=== PATIENT | male | born 1955 | race Caucasian/White ===

== ENCOUNTER 2021-01-17 14:51 | Outpatient (REF) | payer BC, SELFPAY ==
--- NOTE | ~2021-01-17 | XR_ITS ---
EXAMINATION: XR CHEST CLINICAL INFORMATION: Cough COMPARISON: None TECHNIQUE: 2 views of the chest were obtained. FINDINGS: The lungs are well expanded. There is no focal consolidation, edema, or effusion. No pneumothorax. The cardiomediastinal silhouette is within normal limits. No acute osseous abnormality. XR/XR chest 2V IMPRESSION: Clear lungs.
[2021-01-17 15:44] LABS: MANUAL DIFF FLAG NO
[2021-01-17 15:53] LABS: Basophils Absolute Auto 0.1 X10*3/uL (0.0-0.2); Basophils Percent Auto 0.7 % (0-2); Eosinophils Absolute Auto 0.2 X10*3/uL (0.0-0.4); Eosinophils Percent Auto 1.5 % (0-4); Hematocrit 45.5 % (42-52); Hemoglobin 15.6 g/dl (14.0-18.0); Imm Gran Abs Auto 0.05 X10*3/uL (0.00-0.03); Imm Gran Pct Auto 0.5 % (0.0-0.4); Lymphocytes Absolute Auto 2.5 X10*3/uL (1.2-4.9); Lymphocytes Percent Auto 24.2 % (20-40); Mean Corpuscular HGB Conc 34.3 g/dl (31.0-36.0); Mean Corpuscular Hemoglobin 28.6 pg (27.0-33.0); Mean Corpuscular Volume 83.3 fL (80-98); Mean Platelet Volume 11.8 fL (9.4-12.4); Monocytes Percent Auto 9.6 % (2-11); Neutrophils Absolute Auto 6.6 X10*3/uL (2.0-8.3); Neutrophils Percent Auto 63.5 % (45-73); Platelet Count 230 X10*3/uL (160-400); Red Blood Count 5.46 X10*6/uL (4.60-5.80); Red Cell Distribution Width 12.2 % (11.0-16.0); White Blood Count 10.4 X10*3/uL (4.8-10.8)
[2021-01-17 16:00] LABS: Estimated Average Glucose 171 mg/dL; Hemoglobin A1c % 7.6 %
[2021-01-17 16:22] LABS: Alanine Aminotransferase 25 U/L (0-40); Albumin Level 4.5 g/dL (3.5-5.0); Alkaline Phosphatase 55 U/L (39-117); Anion Gap 14 (12-20); Aspartate Amino Transferase 16 U/L (5-37); Bilirubin Total 1.5 mg/dL (0.0-1.0); Blood Urea Nitrogen 15 mg/dL (9-16); C Reactive Protein 1.12 mg/dL (< or = 0.50); Calcium 9.6 mg/dL (8.4-10.2); Carbon Dioxide 26 mmol/L (22-29); Chloride 101 mmol/L (96-108); Estimated Glomerular Filt Rate > 60; Glucose Random 161 mg/dL (60-115); Potassium 4.4 mmol/L (3.3-5.1); Sodium 137 mmol/L (135-145); Total Protein 8.1 g/dL (6.5-8.0)
[2021-01-17 16:24] LABS: Microalbum/Creatinine Ratio Ur 95.9 ug/mg cr
[2021-01-17 16:44] LABS: Free T4 (Free Thyroxine) 0.97 ng/dL (0.71-1.85)
== END 2021-01-17 14:52 | disposition home or self-care (01) ==
LOC: HO.LAB 14:51
PROVIDERS: PCP Internal Medicine; Visit Provider Internal Medicine
DX: R05 Cough (principal); E11.9 Type 2 diabetes mellitus without complications; E78.00 Pure hypercholesterolemia, unspecified; R63.5 Abnormal weight gain
CPT/HCPCS: 36415; 71046; 80053; 82043; 83036; 84439; 84443; 85025; 86140

== ENCOUNTER 2022-03-06 17:04 | Outpatient (REF) | payer BC, SELFPAY ==
--- NOTE | ~2022-03-06 | XR_ITS ---
EXAMINATION: XR CHEST CLINICAL INFORMATION: COVID COMPARISON: Chest radiographs 01/17/2021 TECHNIQUE: Chest is imaged in frontal and 2 lateral views for a total of 3 views. FINDINGS: The lungs are clear and there is no airspace consolidation or groundglass opacity or effusion. The cardiac and hilar and mediastinal contours are normal. Vascularity is normal. The costophrenic sulci are clear. No acute bony abnormality. XR/XR chest 2V IMPRESSION: Unremarkable examination.
[2022-03-06 17:22] LABS: MANUAL DIFF FLAG NO
[2022-03-06 18:00] LABS: Basophils Absolute Auto 0.1 X10*3/uL (0.0-0.2); Basophils Percent Auto 0.6 % (0-2); Eosinophils Absolute Auto 0.2 X10*3/uL (0.0-0.4); Eosinophils Percent Auto 1.7 % (0-4); Hematocrit 48.2 % (42.0-52.0); Hemoglobin 16.6 g/dl (14.0-18.0); Imm Gran Abs Auto 0.04 X10*3/uL (0.00-0.03); Imm Gran Pct Auto 0.4 % (0.0-0.4); Lymphocytes Absolute Auto 2.8 X10*3/uL (1.2-4.9); Mean Corpuscular HGB Conc 34.4 g/dl (31.0-36.0); Mean Corpuscular Hemoglobin 27.8 pg (27.0-33.0); Mean Corpuscular Volume 80.6 fL (80.0-98.0); Mean Platelet Volume 11.7 fL (9.4-12.4); Monocytes Absolute Auto 0.7 X10*3/uL (0.1-1.2); Monocytes Percent Auto 7.7 % (2-11); Neutrophils Absolute Auto 5.6 x10*3/uL (2.0-8.3); Neutrophils Percent Auto 59.6 % (45-73); Platelet Count 270 X10*3/uL (160-400); Red Blood Count 5.98 X10*6/uL (4.60-5.80); Red Cell Distribution Width 12.4 % (11.0-16.0); White Blood Count 9.4 X10*3/uL (4.8-10.8)
[2022-03-06 18:07] LABS: D Dimer High Sensitivity 171 NG/ML
[2022-03-06 18:16] LABS: Influenza A PCR NEGATIVE (Negative); Influenza B PCR NEGATIVE (Negative); Resp Syncy Virus RNA Qual PCR NEGATIVE (Negative); SARS COV2 PCR INHOUSE NEGATIVE (Negative)
[2022-03-06 18:21] LABS: Alanine Aminotransferase 38 U/L (0-40); Albumin Level 4.4 g/dL (3.5-5.0); Alkaline Phosphatase 64 U/L (39-117); Anion Gap 13 (12-20); Aspartate Amino Transferase 22 U/L (5-37); Bilirubin Total 1.5 mg/dL (0.0-1.0); Blood Urea Nitrogen 14 mg/dL (9-16); Carbon Dioxide 24 mmol/L (22-29); Chloride 101 mmol/L (96-108); Estimated Glomerular Filt Rate 59; Glucose Random 211 mg/dL (60-115); Potassium 4.5 mmol/L (3.3-5.1); Sodium 133 mmol/L (135-145); Total Protein 8.3 g/dL (6.5-8.0)
[2022-03-07 05:56] LABS: Estimated Average Glucose 200 mg/dL; Hemoglobin A1c % 8.6 %
== END 2022-03-06 17:05 | disposition home or self-care (01) ==
LOC: HO.XRAY 17:04
PROVIDERS: PCP Internal Medicine; Visit Provider Internal Medicine
DX: Z20.822 Contact with and (suspected) exposure to COVID-19 (principal); R11.2 Nausea with vomiting, unspecified; R42 Dizziness and giddiness; E11.9 Type 2 diabetes mellitus without complications
CPT/HCPCS: 0241U; 36415; 71046; 80053; 83036; 85025; 85379; 86140

== ENCOUNTER 2023-02-06 08:17 | Outpatient (REF) | payer MEDICARE, BC, SELFPAY ==
[2023-02-06 10:58] LABS: MANUAL DIFF FLAG NO
[2023-02-06 11:07] LABS: Basophils Absolute Auto 0.1 X10*3/uL (0.0-0.2); Basophils Percent Auto 0.9 % (0-2); Eosinophils Absolute Auto 0.2 X10*3/uL (0.0-0.4); Eosinophils Percent Auto 2.5 % (0-4); Hematocrit 47.4 % (42.0-52.0); Hemoglobin 15.8 g/dl (14.0-18.0); Imm Gran Abs Auto 0.04 X10*3/uL (0.00-0.03); Imm Gran Pct Auto 0.6 % (0.0-0.4); Lymphocytes Absolute Auto 2.1 X10*3/uL (1.2-4.9); Lymphocytes Percent Auto 32.7 % (20-40); Mean Corpuscular HGB Conc 33.3 g/dl (31.0-36.0); Mean Corpuscular Volume 83.9 fL (80.0-98.0); Mean Platelet Volume 12.5 fL (9.4-12.4); Monocytes Absolute Auto 0.6 X10*3/uL (0.1-1.2); Monocytes Percent Auto 8.9 % (2-11); Neutrophils Absolute Auto 3.5 x10*3/uL (2.0-8.3); Neutrophils Percent Auto 54.4 % (45-73); Platelet Count 220 X10*3/uL (160-400); Red Blood Count 5.65 X10*6/uL (4.60-5.80); Red Cell Distribution Width 12.2 % (11.0-16.0); White Blood Count 6.5 X10*3/uL (4.8-10.8)
[2023-02-06 11:17] LABS: Estimated Average Glucose 197 mg/dL; Hemoglobin A1c % 8.5 %
[2023-02-06 11:23] LABS: Alanine Aminotransferase 24 U/L (0-40); Albumin Level 4.2 g/dL (3.5-5.0); Alkaline Phosphatase 68 U/L (39-117); Anion Gap 16 (12-20); Aspartate Amino Transferase 14 U/L (5-37); Bilirubin Total 1.3 mg/dL (0.0-1.0); Blood Urea Nitrogen 15 mg/dL (9-16); Calcium 9.1 mg/dL (8.4-10.2); Carbon Dioxide 23 mmol/L (22-29); Chloride 104 mmol/L (96-108); Cholesterol 188 mg/dL; Estimated Glomerular Filt Rate > 60; Glucose Fasting 236 mg/dL (60-99); HDL Cholesterol 34 mg/dL; LDL Cholesterol Calculated 127 mg/dl; Potassium 4.5 mmol/L (3.3-5.1); Sodium 138 mmol/L (135-145); Total Protein 7.4 g/dL (6.5-8.0); Triglycerides 135 mg/dL
[2023-02-06 11:39] LABS: Prostate Specific Antigen 1.13 ng/mL (<0.05-4.0); Vitamin D 25-OH Total 33.7 ng/mL (>30)
[2023-02-06 12:26] LABS: Appearance Urine Clear; Color Urine Yellow; Glucose Urine UA >=1000 mg/dL (Negative); Leukocyte Esterase Urine Negative (Negative); Nitrite Urine Negative (Negative); PH 5.5 (5.0-9.0); UMIC TRIGGER UA YES; Urine Blood Negative (Negative); Urine Ketones Negative (Negative); Urine Protein 30 (1+) mg/dL (Neg-Trace)
[2023-02-06 12:41] LABS: Bacteria Urine None Seen (None Seen); Calcium Oxalate Crystals Urine Present; RBC Urine 0-2 /HPF (0-2); Squamous Epithelial Cell Urine 0-2 /HPF (0-2); WBC Urine 0-5 /HPF (0-5)
[2023-02-06 12:47] LABS: Creatinine Urine 113.14 mg/dL; Microalbum/Creatinine Ratio Ur 179.4 ug/mg cr
[2023-02-09 15:29] LABS: Calcium (PTHI) 9.1 mg/dL (8.6-10.3); PTHI 56 pg/mL (16-77)
== END 2023-02-06 08:18 | disposition home or self-care (01) ==
LOC: HO.10HDL 08:17
PROVIDERS: Visit Provider Internal Medicine
DX: E11.22 Type 2 diabetes mellitus with diabetic chronic kidney disease (principal); I12.9 Hypertensive chronic kidney disease with stage 1 through stage 4 chronic kidney disease, or unspecified chronic kidney disease; N18.9 Chronic kidney disease, unspecified; E78.00 Pure hypercholesterolemia, unspecified; R35.1 Nocturia; Z12.5 Encounter for screening for malignant neoplasm of prostate
CPT/HCPCS: 36415; 80053; 80061; 81001; 82043; 82306; 83036; 83970; 84100; 84153; 85025

== ENCOUNTER 2023-02-17 12:54 | Outpatient (REF) | payer MEDICARE, BC, SELFPAY | END 2023-02-17 12:55 | disposition home or self-care (01) | LOC: HO.LNP 12:54 | PROVIDERS: PCP Internal Medicine; Visit Provider Surgery | DX: L91.8 Other hypertrophic disorders of the skin (principal) | CPT/HCPCS: 11102; 11103; 11622; 88305 ==

== ENCOUNTER → 2023-03-03 08:48 | Outpatient (BNVA) | payer BC, SELFPAY | PROVIDERS: PCP Internal Medicine; Visit Provider Surgery ==

== ENCOUNTER → 2023-03-11 10:07 | Outpatient (BNVA) | payer BC, SELFPAY | PROVIDERS: PCP Internal Medicine; Visit Provider Orthopaedic Surgery ==

== ENCOUNTER 2023-04-10 12:36 | Outpatient (REF) | payer MEDICARE, BC, SELFPAY | END 2023-04-10 12:37 | disposition home or self-care (01) | LOC: HO.HOSX 12:36 | PROVIDERS: Visit Provider Physician Assistant | DX: M19.011 Primary osteoarthritis, right shoulder (principal); M75.81 Other shoulder lesions, right shoulder | CPT/HCPCS: 73030 ==

== ENCOUNTER → 2023-04-24 09:10 | Outpatient (BNVA) | payer BC, MEDICARE, SELFPAY | PROVIDERS: PCP Internal Medicine; Visit Provider Physician Assistant ==

== ENCOUNTER 2023-05-28 09:10 | Outpatient (AMB) | payer MEDICARE, BC, SELFPAY ==
--- NOTE | 2023-05-28 09:11 | A.OFFVIS_ITS ---
Intake Intake Visit Reasons: OV-Right shoulder MRI review Intake Note: Van a 67 year old male presents today for an MRI review of right shoulder. Pt states he is still having pain here and there if he lifts his arm up. Allergies No Known Allergies Allergy (Verified 05/28/23 09:12) HPI OV-Right shoulder MRI review HPI Details 67-year-old male who returns to the office today for an MRI review of right shoulder. He continues to have intermittent pain in his shoulder with lifting his arm up. He had an injection in the past which provided him relief. He has a history of diabetes. His sugar level is 307 today. [facility] Medical History Diabetes mellitus Elevated cholesterol Hypertension Social History Alcohol intake: never Patient Tobacco Use Status: Never used Tobacco Current occupational status: retired Current occupation: rt hand Review of Systems Const All systems reviewed & are unremarkable except as noted in HPI and below Physical Exam Extrem Other: Right shoulder: Normal to inspection. He does have some protraction of scapula with prominent AC joint. Abduction to 45 degrees. He has weakness with RTC strength testing when compared to the contralateral side. Assessment & Plan Assessment & Plan (1) Tendinitis of right rotator cuff: Code(s): M75.81 - Other shoulder lesions, right shoulder (2) Osteoarthritis of acromioclavicular joint: Code(s): M19.019 - Primary osteoarthritis, unspecified shoulder Plan We did disc his MRI findings in the office today. He does not have a RTC tear but his RTC is significantly inflamed which is limiting his daily activities. His fasting glucose is approximately 300, therefore he is still not a candidate for a steroid injection. I also explain that with an HbA1c of 8.5, he may also not be a candidate for any type of surgical intervention. I did stress the importance of following up with his PCP sooner than later so that way they can get better treatment plan for his diabetes. I also sent a prescription of Celebrex to the pharmacy to take twice a day for the next 2 weeks to see if this helps with his pain. I encouraged him to continue working on his home exercises for his shoulder and follow-up with me as needed. Medications: New celecoxib (Celebrex) 200 mg PO BID 60 caps 3RF 30 days Patient Instructions: Scribed for Estevan Cabrera PA-C, by Tereso Deng biomedical manager, on 05/28/2023 at 9:15 AM MAHNAZ. Estevan King PA-C, have personally reviewed and agree with the information entered by the scribe. Coding Level of Care Code Est Pt Level 3 (57923) Diagnoses Tendinitis of right rotator cuff M75.81 Osteoarthritis of acromioclavicular joint M19.019
== END 2023-05-28 10:03 | disposition home or self-care (01) ==
PROVIDERS: PCP Internal Medicine; Visit Provider Physician Assistant
DX: M75.81 Other shoulder lesions, right shoulder (principal); M19.019 Primary osteoarthritis, unspecified shoulder
CPT/HCPCS: 99213

== ENCOUNTER → 2023-05-28 09:10 | Outpatient (BNVA) | payer BC, MEDICARE, SELFPAY | PROVIDERS: PCP Internal Medicine; Visit Provider Physician Assistant ==

== ENCOUNTER 2025-07-27 07:58 | Outpatient (REF) | payer MEDICARE, BC, SELFPAY ==
[2025-07-27 10:48] LABS: Hematocrit 46.6 % (42.0-52.0); Hemoglobin 15.7 g/dl (14.0-18.0); Mean Corpuscular HGB Conc 33.7 g/dl (31.0-36.0); Mean Corpuscular Hemoglobin 28.0 pg (27.0-33.0); Mean Corpuscular Volume 83.1 fL (80.0-98.0); NRBC Abs Auto 0.000 X10*3/uL (0.0-0.012); NRBC Pct Auto 0.0 /100WBC (0.0-0.2); Platelet Count 201 X10*3/uL (160-400); Red Blood Count 5.61 X10*6/uL (4.60-5.80); White Blood Count 8.1 X10*3/uL (4.8-10.8)
[2025-07-27 10:55] LABS: Hemoglobin A1C 287.0022 umol/L; Total Hemoglobin (HGBA1C) 4056.9316 umol/L
[2025-07-27 11:05] LABS: Alanine Aminotransferase 22 U/L (0-40); Albumin Level 4.4 g/dL (3.5-5.0); Alkaline Phosphatase 61 U/L (39-117); Anion Gap 12 (12-20); Aspartate Amino Transferase 27 U/L (5-37); Blood Urea Nitrogen 16 mg/dL (9-16); Calcium 9.4 mg/dL (8.4-10.2); Carbon Dioxide 26 mmol/L (22-29); Chloride 103 mmol/L (96-108); Cholesterol 228 mg/dL (<200); Estimated Glomerular Filt Rate > 60; HDL Cholesterol 33 mg/dL (>40); Potassium 4.6 mmol/L (3.3-5.1); Sodium 136 mmol/L (135-145); Total Protein 8.0 g/dL (6.5-8.0); Triglycerides 239 mg/dL (<150)
== END 2025-07-27 07:59 | disposition home or self-care (01) ==
LOC: HO.10HDL 07:58
PROVIDERS: Visit Provider Physician Assistant Medical
DX: Z13.220 Encounter for screening for lipoid disorders (principal); E11.9 Type 2 diabetes mellitus without complications; I10 Essential (primary) hypertension; R06.02 Shortness of breath; Z79.899 Other long term (current) drug therapy
CPT/HCPCS: 36415; 80053; 80061; 83036; 84443; 85027